=== PATIENT | female | born 1950 | race Caucasian/White ===

== ENCOUNTER 2016-09-03 14:43 | Inpatient (IN) ==
[2016-09-03] MEDS ORDERED: ZALEPLON 5 MG CAPSULE PO PRN (15:31)
[2016-09-03] MEDS ORDERED: DOCUSATE SODIUM 100 MG CAPSULE PO PRN (15:31)
[2016-09-03] MEDS ORDERED: MAGNESIUM SULF RIDER 4 GM in PREMIX 1 EACH IV PRN (15:31)
[2016-09-03] MEDS ORDERED: MORPHINE 2 MG/1 ML SYRINGE IV PRN (15:31)
[2016-09-03] MEDS ORDERED: ONDANSETRON 4 MG/2 ML VIAL IV PRN (15:31)
[2016-09-03] MEDS ORDERED: BISACODYL 5 MG TABLET PO PRN (15:31)
[2016-09-03] MEDS ORDERED: MAGNESIUM SULF RIDER 2 GM in PREMIX 1 EACH IV PRN (15:31)
[2016-09-03] MEDS ORDERED: ACETAMINOPHEN 325 MG TABLET PO PRN (15:31)
[2016-09-03 16:03] LABS: Basophils # 0.1 10*3/uL (0.0-0.2); Basophils % 0.4 % (0.0-0.8); Eosinophils % 0.1 % (0.00-10.9); Hematocrit 29.9 VOL% (35.7-47.0); Hemoglobin 8.7 GM/DL (12.0-16.0); Immature Granulocytes % 0.7 %; Immature Granulocytes Absolute 0.08 #; Lymphocytes # 1.3 10*3/uL (1.4-4.0); Lymphocytes % 11.2 % (21.3-54.2); Mean Corpuscular HGB Conc 29.1 GM/DL (32-36); Mean Corpuscular Hemoglobin 20 PG (27-34); Mean Corpuscular Volume 67.3 FL (87-102); Mean Platelet Volume 10.1 FL (9.6-12.0); Monocytes # 1.4 10*3/uL (0.11-0.8); Monocytes % 12.2 % (1.7-12.7); Neutrophils # 8.8 10*3/uL (1.4-7.4); Neutrophils % 75.4 % (38.7-73.9); Platelet Count 436 T/CUMM (130-400); Red Blood Count 4.44 MC/CUMM (3.8-5.5); Red Cell Distribution Width 18.1 % (9.3-17.3); White Blood Count 11.7 T/CUMM (4-12)
[2016-09-03] MEDS ORDERED: LORazepam 0.5 MG TABLET PO PRN (16:05)
[2016-09-03] MEDS ORDERED: ENOXAPARIN 40 MG/0.4 ML SYRINGE SUBCUT SCH (16:30)
[2016-09-03 16:32] LABS: Albumin 2.5 G/DL (3.4-5.0); Bilirubin,Total 0.7 MG/DL (0.2-1.0); Calcium 12.4 MG/DL (8.5-10.1); Osmolality,Calculated 277.8 MOS/KG (273-304); Total Protein 7.1 G/DL (6.4-8.3)
--- NOTE | 2016-09-03 16:39 | Cardiology History & Physical ---
Assessment and Plan - Time spent with patient Time spent with patient: Greater than 30 minutes (Examination, chart review, imaging review discussion with the patient and her family) (1) Renal cell carcinoma Status: Acute Assessment and plan: This appears to be bilateral in stage IV with metastases known to the scalp, IVC , lungs, and presumptively the ventricular myocardium as there is a mass filling the left ventricle with no underlying regional wall motion abnormality. Current Visit: Yes Qualifiers: Laterality: unspecified laterality Qualified Code(s): C64.9 - Malignant neoplasm of unspecified kidney, except renal pelvis (2) Cardiac mass Status: Acute Current Visit: Yes (3) Hx of carcinoma in situ of breast Status: Acute Current Visit: Yes (4) Anemia Status: Acute Assessment and plan: Microcytic hyperchromic associated with a malignancy Current Visit: Yes (5) Malignant cachexia Status: Acute Current Visit: Yes History of Present Illness Chief complaint: Ventricular mass History of present illness: Ms. Huerta is a 65 year old female who has no primary care physician. The patient has experienced declining health that she has noticed since April. She has lost about 34 pounds. She recently had upper and lower endoscopy by Dr. Conner for anemia and weight loss. She also apparently had a upper GI with small bowel follow-through in March showed a hiatal hernia otherwise largely unremarkable the patient continued to do poorly with failure to thrive over the last several months then recently fractured some ribs on the right was seen in an urgent care clinic where she states she had an x-ray. She was given pain medicine and released. Then ultimately the patient had a lesion that showed up in the occipital region there was restricted dissected by Dr. Sonny Zamudio. The pathology came back metastatic renal cell carcinoma which resulted in CT scan of the abdomen and pelvis and chest today that shows widely metastatic disease from presumed primary renal cell carcinoma. The left kidney significantly enlarged and there is also extension of apparent tumor into the inferior vena cava, left retroperitoneal area, pulmonary nodules consistent with metastatic disease adenopathy and there is also an LV filling defect at the apex. This resulted in the patient be referred to Dr. Gt Thrasher who performed a transthoracic echocardiogram today and there was found to be a 3 cm protruding mass in the apex of the left ventricle with good underlying wall motion suggesting tumor. There is mild concentric left ventricular hypertrophy and grade 1 diastolic dysfunction otherwise unremarkable. The patient was subsequently referred to the [facility] inpatient service for evaluation and oncology referral. Dr. Thrasher call and discuss with me also discussed with Dr. Zamudio and had discussed with the patient's oncologist Dr. Abdulaziz talbert. The patient has been followed in the past from oncology standpoint for carcinoma of the breast initially treated by Dr. Doug Noland now been followed by Dr. Ervin. Home Medications Medication Instructions Recorded Confirmed Type Aspirin [Ecotrin] 81 mg PO DAILY 09/03/16 09/03/16 History Multivitamin/Iron/Folic Acid 1 tablet PO DAILY 09/03/16 09/03/16 History [Centrum Women Tablet] Allergies Allergy/AdvReac Type Severity Reaction Status Date / Time No Known Allergies Allergy Verified 09/03/16 16:21 - Constitutional Constitutional: Present: anorexia, fatigue, headache(s), weight loss. Absent: daytime sleepiness, excessive sweating, night sweats, stops breathing during sleep - EENT Eyes: Absent: blurry vision, diplopia Ears: Absent: ear discharge Nose, mouth and throat: Absent: dysphagia, nasal congestion, neck mass - Cardiovascular Cardiovascular: Absent: chest pain at rest, chest pain with activity, claudication, diaphoresis, dyspnea, dyspnea on exertion, edema, orthopnea, palpitations - Respiratory Respiratory: Present: other (Chest wall pain over the right area where she broke her ribs). Absent: cough, dyspnea on exertion - Gastrointestinal Gastrointestinal: Present: early satiety, hematochezia, melena, nausea, other ( Nausea and vomiting). Absent: change in bowel habits, coffee ground emesis, constipation, dyspepsia, dysphagia, fecal incontinence - Genitourinary Genitourinary: Present: flank pain. Absent: abnormal vaginal bleeding - Musculoskeletal Musculoskeletal: Absent: arthralgias, joint swelling - Neurological Neurological: Absent: abnormal gait, abnormal speech, disequilibrium, dizziness - Psychiatric Psychiatric: Absent: anxiety, depression - Endocrine Endocrine: Absent: cold intolerance, heat intolerance - Hematologic/Lymphatic Hematologic/Lymphatic: Present: easy bruising. Absent: easy bleeding Medical,Surgical,& Family Hx - Medical History Genitourinary: History of: Genitourinary Cancer ("RENAL CELL CARCINOMA") Gastrointestinal: History of: GI Problems ("STATES HAS HOLE IN STOMACH") Reproductive: History of: Breast Cancer (LUMPS REMOVED) Other: History of: Cancer ("STATES WAS TOLD SHE HAS CANCER") - Family History Family History: Reports;: Family Cancer (MOTHER, FATHER), Family Hypertension ( SISTER) - Social History Smoking Status: Unknown if ever smoked Frequency of Alcohol Use: None Type of Drug Use: None Marital Status: Lives With:: Spouse Functional capacity: independent ambulation Cardiology Physical Exam - Constitutional Vitals: Vital Signs Temp Pulse Resp BP Pulse Ox 97.7 F 99 H 18 119/73 97 09/03/16 15:58 09/03/16 15:58 09/03/16 15:58 09/03/16 15:58 09/03/16 15:58 Intake and Output 09/03/16 09/03/16 09/03/16 07:59 15:59 23:59 Other: Weight 62.142 kg Patient Weight 09/03/16 23:59 Weight 62.142 kg General appearance: no acute distress - Eye Eye exam: Present: EOMI, other (Pallor) Pupils: Present: DIMPLE - ENT ENT exam: Present: normal exam - Respiratory Respiratory exam: Present: clear to auscultation bilaterally - Cardiovascular Cardiovascular exam: Present: regular rate and rhythm (She has a 3/6 murmur the left lower sternal border appears to be primarily systolic) - GI/Abdominal GI/Abdominal exam: Present: normal bowel sounds, other (She has a palpable mass in the left lower quadrant she also appears to have hepatomegaly her abdomen is diffusely tender she has normal active bowel sounds.) - Back Exam Back exam: Present: normal inspection - Neurological Exam Neurological exam: Present: alert, oriented X3 - Psychiatric Psychiatric exam: Present: normal affect, depressed - Skin Skin exam: Present: normal color, warm Result/EKG - Labs CBC & BMP: 09/03/16 15:58 09/03/16 15:59 Labs: Laboratory Results - last 24 hr 09/03/16 09/03/16 15:58 15:59 WBC 11.7 RBC 4.44 Hgb 8.7 L Hct 29.9 L MCV 67.3 L MCH 20 L MCHC 29.1 L RDW 18.1 H Plt Count 436 H MPV 10.1 Neut % (Auto) 75.4 H Lymph % (Auto) 11.2 L [place] % (Auto) 12.2 Eos % (Auto) 0.1 Baso % (Auto) 0.4 Neut # (Auto) 8.8 H Lymph # (Auto) 1.3 L [place] # (Auto) 1.4 H Eos # (Auto) 0.0 Baso # (Auto) 0.1 Immature Gran % 0.7 Nucleated RBC % 0.0 Immature Gran # 0.08 Nucleated RBCs # 0.00 Sodium 137 Potassium 3.0 L Chloride 94 L Carbon Dioxide 33 H Anion Gap 13.0 BUN 18 Creatinine 0.90 GFR Calculation 66 BUN/Creatinine Ratio 20.00 Glucose 154 H Calculated Osmolality 277.8 Calcium 12.4 H Total Bilirubin 0.70 AST 17 ALT 18 Alkaline Phosphatase 284 H Total Protein 7.1 Albumin 2.5 L Globulin 4.6 H Albumin/Globulin Ratio 0.5 L
[2016-09-03] MEDS: POTASSIUM CHLORIDE 20 MEQ TABLET PO SCH (17:26)
[2016-09-04 05:27] LABS: Basophils # 0.1 10*3/uL (0.0-0.2); Basophils % 0.6 % (0.0-0.8); Eosinophils % 0.2 % (0.00-10.9); Hematocrit 26.4 VOL% (35.7-47.0); Hemoglobin 7.6 GM/DL (12.0-16.0); Immature Granulocytes % 0.5 %; Immature Granulocytes Absolute 0.04 #; Lymphocytes % 11.8 % (21.3-54.2); Mean Corpuscular HGB Conc 28.8 GM/DL (32-36); Mean Corpuscular Hemoglobin 19 PG (27-34); Mean Corpuscular Volume 67.5 FL (87-102); Mean Platelet Volume 10.4 FL (9.6-12.0); Monocytes % 11.8 % (1.7-12.7); Neutrophils # 6.7 10*3/uL (1.4-7.4); Neutrophils % 75.1 % (38.7-73.9); Platelet Count 369 T/CUMM (130-400); Red Blood Count 3.91 MC/CUMM (3.8-5.5); Red Cell Distribution Width 18.2 % (9.3-17.3); White Blood Count 8.9 T/CUMM (4-12)
[2016-09-04 06:03] LABS: Hypochromasia 2+; Microcytosis 2+
[2016-09-04 06:04] LABS: Ovalocytes Slight; Platelet Estimate Normal
[2016-09-04 06:08] LABS: Albumin 2.1 G/DL (3.4-5.0); Bilirubin,Total 0.9 MG/DL (0.2-1.0); Calcium 11.6 MG/DL (8.5-10.1); Osmolality,Calculated 279.7 MOS/KG (273-304); Potassium 3.2 MMOL/L (3.5-5.1); Total Protein 6.2 G/DL (6.4-8.3)
[2016-09-04] MEDS ORDERED: IRON SUCROSE IV ONE (08:53)
[2016-09-04] MEDS ORDERED: SODIUM CHLORIDE 0.9% IV ONE (08:53)
[2016-09-04] MEDS ORDERED: PANTOPRAZOLE 40 MG TABLET PO SCH (09:00)
[2016-09-04] MEDS ORDERED: MULTIVITAMIN (CENTRUM) TABLET PO SCH (09:00)
--- NOTE | 2016-09-04 09:01 | Oncology Progress Note ---
Oncology Subjective PN Interval history: Patient with breast cancer [address] Gonsales and then by Dr. Miko Diaz. I saw her in January 2016 and changed oncology follow-up to as needed. She was admitted to the hospital yesterday after a CT scan revealed metastatic renal cell carcinoma. This was prompted by a biopsy of the left occipital scalp. The patient is noted to have bilateral renal masses as well as multiple pulmonary nodules and a 3-4 cm ventricular mass. I discussed the case with cardiology and there is no apparent dysrhythmia nor flow obstruction regarding the cardiac mass. The patient was seen and evaluated this morning with several family members present. She states she is currently uninsured and I have consulted case management for this reason. We are planning an MRI of the brain later today for complete staging. Her review of systems are notable for 30 pound weight loss over a 4-6 week interval. She does report occasional postprandial emesis. She also appears to be iron deficient with significant microcytosis. Intravenous iron is ordered 1 dose today and will be followed up in the oncology clinic. The patient was provided with a sample bottle of Votrient 200 mg tablets #60 with instructions to take 3 p.o. once daily 1 hour before or 2 hours after food intake. The package insert was also provided for outpatient review of further information. She appears stable and if her MRI brain is negative then she can be discharged to home later today with oral therapy as described above and plans for oncology follow-up on her around September 17. Exam - Constitutional Vitals: Period Temp Pulse Resp BP Sys/Duke Pulse Ox Last 24 Hr 96.8 F-99.8 F 87-99 12-20 106-119/60-73 90-97 Results - Labs CBC & BMP: 09/04/16 05:15 09/04/16 05:15
--- NOTE | 2016-09-04 09:04 | Discharge Summary ---
Hospital Course - Hospital Course Hospital Course: Ms. Huerta was transferred from [facility] office after being evaluated by Dr. Thrasher for ventricular mass to the cardiology service. She had been newly diagnosed with advanced renal cell carcinoma. She was seen in consultation by Dr. Abdulaziz Ervin who made arrangements for her to receive oral outpatient chemotherapeutic samples to treat her malignancy. She had labs that showed significant anemia. She will receive an infusion of IV iron today. She is also scheduled to have an MRI of the brain with and without contrast once all this is completed she will be discharged home. She will follow-up Dr. Ervin on September 17. - Time spent with patient Time with patient DS: Less than 30 minutes Diagnosis - Discharge Diagnosis (1) Renal cell carcinoma Status: Acute (2) Cardiac mass Status: Acute (3) Hx of carcinoma in situ of breast Status: Acute (4) Anemia Status: Acute (5) Malignant cachexia Status: Acute Specialty Discharge - Follow Up or Referrals Follow up with: Abdulaziz Ervin MD [Physician] - (September 17) Discharge Plan - Discharge Data Disposition: Disch To Home/Self Care Condition at Discharge: Stable Discharge Diet: advance to your usual diet Activity: resume usual activities as tolerated Hygiene: no restrictions Weight Bearing at Discharge: full weight bearing Driving: no restrictions Contact your physician if you experience:: fever over 101, Difficulty voiding, Redness or swelling, Nausea/Vomiting, Shortness of breath, Bleeding, pain uncontrolled by pain medications - Discharge Medications No Action Multivitamin/Iron/Folic Acid [Centrum Women Tablet] 1 tablet PO DAILY Aspirin [Ecotrin] 81 mg PO DAILY - Follow Up or Referral - Forms/Instructions Exam - Constitutional Vitals: Period Temp Pulse Resp BP Sys/Duke Pulse Ox Last 24 Hr 96.8 F-99.8 F 87-99 12-20 106-119/60-73 90-97 General appearance: under weight - Respiratory Respiratory exam: Present: clear to auscultation bilaterally - Cardiovascular Cardiovascular exam: Present: regular rate and rhythm (Systolic murmur heard greatest at the PMI) - GI/Abdominal GI/Abdominal exam: Present: normal bowel sounds - Extremities Exam Extremities exam: Present: normal inspection - Back Exam Back exam: Present: normal inspection - Neurological Exam Neurological exam: Present: alert, oriented X3 - Psychiatric Psychiatric exam: Present: depressed - Skin Skin exam: Present: normal color, warm, dry Discharge Results Procedures and tests throughout hospitalization: Pending Orders 09/04/16 04:00 MR head/brain wo con IN AM Labs on day of discharge: Labs from last 24 hours 09/04/16 09/04/16 09/03/16 05:15 05:15 15:59 WBC 8.9 RBC 3.91 Hgb 7.6 L Hct 26.4 L MCV 67.5 L MCH 19 L MCHC 28.8 L RDW 18.2 H Plt Count 369 MPV 10.4 Neut % (Auto) 75.1 H Lymph % (Auto) 11.8 L [place] % (Auto) 11.8 Eos % (Auto) 0.2 Baso % (Auto) 0.6 Neut # (Auto) 6.7 Lymph # (Auto) 1.0 L [place] # (Auto) 1.0 H Eos # (Auto) 0.0 Baso # (Auto) 0.1 Immature Gran % 0.5 Nucleated RBC % 0.0 Immature Gran # 0.04 Nucleated RBCs # 0.00 Platelet Estimate Normal Hypochromasia 2+ Microcytosis 2+ Ovalocytes Slight Morphology Comment Sodium 138 137 Potassium 3.2 L 3.0 L Chloride 97 L 94 L Carbon Dioxide 33 H 33 H Anion Gap 11.2 13.0 BUN 16 18 Creatinine 0.70 0.90 GFR Calculation 91 66 BUN/Creatinine Ratio 22.00 H 20.00 Glucose 168 H 154 H Calculated Osmolality 279.7 277.8 Calcium 11.6 H 12.4 H Total Bilirubin 0.90 0.70 AST 12 17 ALT 15 18 Alkaline Phosphatase 235 H 284 H Total Protein 6.2 L 7.1 Albumin 2.1 L 2.5 L Globulin 4.1 H 4.6 H Albumin/Globulin Ratio 0.5 L 0.5 L 09/03/16 15:58 WBC 11.7 RBC 4.44 Hgb 8.7 L Hct 29.9 L MCV 67.3 L MCH 20 L MCHC 29.1 L RDW 18.1 H Plt Count 436 H MPV 10.1 Neut % (Auto) 75.4 H Lymph % (Auto) 11.2 L [place] % (Auto) 12.2 Eos % (Auto) 0.1 Baso % (Auto) 0.4 Neut # (Auto) 8.8 H Lymph # (Auto) 1.3 L [place] # (Auto) 1.4 H Eos # (Auto) 0.0 Baso # (Auto) 0.1 Immature Gran % 0.7 Nucleated RBC % 0.0 Immature Gran # 0.08 Nucleated RBCs # 0.00 Platelet Estimate Hypochromasia Microcytosis Ovalocytes Morphology Comment Sodium Potassium Chloride Carbon Dioxide Anion Gap BUN Creatinine GFR Calculation BUN/Creatinine Ratio Glucose Calculated Osmolality Calcium Total Bilirubin AST ALT Alkaline Phosphatase Total Protein Albumin Globulin Albumin/Globulin Ratio DS: Provider Date of admission: 09/03/16 15:24 Primary care physician: . No PCP Attending physician on admission: Rebecca Gomez DO Consults: 09/03/16 15:31 Consult to Physician [CONS] Routine Comment: renal cell ca with mets Consulting Provider: Abdulaziz Ervin Consult to Specialist Group: Oncology Person Notified: AMINA Date Notified: 09/04/16 Time Notified: 08:50 09/03/16 16:18 Consult to Pastoral Services [CONS] Routine Comment: Pastoral Screen: Terminal Diagnosis 09/03/16 16:41 Consult to Dietitian [CONS] Routine Reason for Dietitian: Other 09/04/16 08:50 Consult to Case Mgmt/Social Srvs [CONS] Routine Reason for Case Mgmt/Social Srvs: Discharge Planning Consult Comment: Needs insurance Discharging clinician: Rebecca Gomez DO Expected date of discharge: 09/04/16
[2016-09-04] MEDS: POTASSIUM CHLORIDE 20 MEQ TABLET PO SCH (09:08)
--- NOTE | 2016-09-04 13:43 | Magnetic Resonance Report ---
History: Renal cell carcinoma. Metastatic disease Date: 09/04/2016 Study: MRI brain without IV contrast Comparison exam: No previous brain imaging study The brain was imaged in 3 planes on the 1.5 Susan magnet without IV contrast, to include diffusion, T2, FLAIR, gradient echo, and T1-weighted sequences. The ventricles are midline in position without evidence of hydrocephalus. There is no Chiari I malformation. There is no evidence of acute ischemia on the diffusion sequence. There is a small hypointense gradient echo focus involving right occipital cortex/subcortical white matter compatible with a small amount of hemosiderin related to remote focal hemorrhage in this area. There is no obvious acute hemorrhage. There is no obvious mass effect within the brain elsewhere. There is a small amount of patchy increased T2 and FLAIR signal in the periventricular white matter without mass effect compatible with changes of small vessel disease. There is no extra-axial hematoma. There is a normal flow void in the superior sagittal sinus. There is no gross flow abnormality in the [place] area. There is no obvious cerebellopontine angle mass. The partially visualized paranasal sinuses are clear. Impression: No definite acute intracranial process. Punctate focus of remote hemorrhage right occipital lobe. No definite acute hemorrhage or mass effect otherwise. Mild periventricular small vessel disease PROCEDURE INTERPRETED AT [facility] DEPARTMENT OF RADIOLOGY Final Report Signed by: Dr. Jen Conner
[2016-09-04 16:45] VITALS: BP 114/66
== END 2016-09-04 17:57 | disposition home or self-care (01) | DRG 687 ==
LOC: N.TELEN 15:24
PROVIDERS: ADMIT Internal Medicine Cardiovascular Disease; ATTEND Internal Medicine Cardiovascular Disease